=== PATIENT | male | born 1945 | race Caucasian/White ===

== ENCOUNTER 2017-12-28 09:54 | Inpatient (IN) ==
[2017-12-28] MEDS ORDERED: Sod Chloride 0.9% Inj 1,000 ML IV.CONT SCH (10:45)
[2017-12-28 11:01] LABS: Baso % (Auto) 0.2 % (0.0-2.0); Eos % (Auto) 0.1 % (0.0-4.0); Hematocrit 42.8 % (39.0-51.0); Hemoglobin 14.1 gm/dL (13.0-17.0); Lymph # (Auto) 0.4 th/mm3 (1.0-4.8); Mean Corpuscular Hemoglobin 32.5 pg (27.0-34.0); Mean Corpuscular Volume 98.7 fL (80.0-100.0); Mean Platelet Volume 9.4 fL (7.0-11.0); Mono # (Auto) 0.8 th/mm3 (0.0-0.9); Mono % (Auto) 6.4 % (0.0-8.0); Neut # (Auto) 11.8 th/mm3 (1.8-7.7); Neut % (Auto) 90.3 % (16.0-70.0); Platelet Count 165 th/mm3 (150-450); Red Blood Count 4.34 mil/mm3 (4.50-5.90); Red Cell Distribution Width 13.4 % (11.6-17.2)
[2017-12-28 11:14] LABS: Activated Partial Thrombo Time 29.7 sec (24.3-30.1); INR 1.1 Ratio; Prothrombin Time 11.3 sec (9.8-11.6)
--- NOTE | 2017-12-28 11:34 | CT ---
EXAM DATE: 12/28/2017 11:21 AM EDT AGE/SEX: 72 years / Male INDICATIONS: Trauma, fall from bed this morning. Increased right sided weakness and slurred speech. CLINICAL DATA: This is the patient's initial encounter. Patient reports that signs and symptoms have been present for 1 day and indicates a pain score of 4/10. MEDICAL/SURGICAL HISTORY: Hypertension. Seziures. Traumatic brain injury. None. RADIATION DOSE: 55.87 CTDI (mGy) COMPARISON: No prior exams available for comparison. TECHNIQUE: CT of the head without contrast. Using automated exposure control and adjustment of the mA and/or kV according to patient size, radiation dose was kept as low as reasonably achievable to ob tain optimal diagnostic quality images. DICOM format image data is available electronically for revi ew and comparison. FINDINGS: Cerebrum: Evidence for previous surgery left hemisphere with calcification and bone flap. Old infarc t in the left sylvian region. Right hemisphere unremarkable Ventricular 1 second her Posterior Fossa: The cerebellum and brainstem are intact. The 4th ventricle is midline. The cerebe llopontine angle is unremarkable. Extracranial: The visualized portion of the orbits is intact. Skull: The calvaria is intact. No evidence of skull fracture. CONCLUSION: 1. 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 . Electronically signed by: Gianluca Hinton MD 12/28/2017 11:32 AM EDT
[2017-12-28 11:38] LABS: Albumin 2.9 g/dL (3.4-5.0); Anion Gap 10 meq/L (5-15); Aspartate Aminotransferase 54 U/L (15-37); Blood Urea Nitrogen 13 mg/dL (7-18); Calcium 8.7 mg/dL (8.5-10.1); Carbon Dioxide 27.4 meq/L (21.0-32.0); Chloride 100 meq/L (98-107); Glomerular Filtration Rate 66 mL/min (>89); Glucose,Random 122 mg/dL (74-106); Potassium 3.9 meq/L (3.5-5.1); Sodium 137 meq/L (136-145)
[2017-12-28 11:41] LABS: Alanine Aminotransferase 73 U/L (12-78); Alkaline Phosphatase 153 U/L (45-117); Total Protein 7.7 g/dL (6.4-8.2)
--- NOTE | 2017-12-28 11:42 | XR ---
EXAM DATE: 12/28/2017 11:22 AM EDT AGE/SEX: 72 years / Male INDICATIONS: Fall, confusion, dizziness, shortness of breath. CLINICAL DATA: This is the patient's initial encounter. Patient reports that signs and symptoms have been present for 1 day and indicates a pain score of 0/10. MEDICAL/SURGICAL HISTORY: Cardiovascular disease. None. COMPARISON: No prior exams available for comparison. FINDINGS: The cardiac silhouette is enlarged in transverse diameter. There is prominence of the aortic knob is with calcification characteristic of atherosclerotic vascular disease. There is linear atelectasis ve rsus scar on the right. CONCLUSION: Cardiomegaly. Atelectasis versus scar right base Electronically signed by: Flash Munoz MD 12/28/2017 11:41 AM EDT
[2017-12-28 11:43] LABS: Creatine Kinase 71 U/L (39-308)
[2017-12-28] MEDS ORDERED: Aspirin 325 MG Tablet PO ONE (12:13)
--- NOTE | 2017-12-28 12:13 | ED ---
HPI General Chief Complaint: Neuro Symptoms/Deficit Stated Complaint: Fall/Abd Pain Time Seen by Provider: 12/28/17 10:39 Source: patient and family Mode of arrival: ambulatory Limitations: no limitations History of Present Illness HPI Narrative: Patient is a 79-year-old male with history of TBI since he was 19 years old with right-sided deficits, A. fib, seizures, hypothyroidism, hypertension, presents to the emergency room with complaints of generalized weakness. Patient's family reports that patient fell out of bed this morning while trying to use the bathroom, denies any trauma to his head or neck. Patient reports that he has been having problems with his right leg. Patient reports that for the past week, his right leg has been dragging, reports that it feels as if the leg is not talking to his brain. Patient reports that he has been having difficulties with word finding patient does have history of atrial fibrillation, he sees Dr. Carrera in the office for this. He currently is not on any anticoagulation., Report no history of CVA in the past. Patient reports that he does have a mild headache, reports that his abdomen all possible is uncomfortable as he has been on constipated. Patient with no nausea or vomiting, he has been eating but reports overall decreased p.o. intake. Related Data Home Medications Medication Instructions Recorded Confirmed cholecalciferol (vitamin D3) 2,000 unit PO DAILY 12/28/17 12/28/17 [Vitamin D3] levothyroxine 75 mcg PO DAILY 12/28/17 12/28/17 metoprolol tartrate 25 mg PO BID 12/28/17 12/28/17 multivitamin 1 cap PO QAM 12/28/17 12/28/17 primidone 250 mg PO Q12H 12/28/17 12/28/17 vitamins A,C,D-cqmp-icfdzf 2 tab PO BID 12/28/17 12/28/17 [PreserVision AREDS] Allergies Allergy/AdvReac Type Severity Reaction Status Date / Time No Known Allergies Allergy Unverified 12/28/17 10:00 Review of Systems ROS: all other systems reviewed are negative [facility] Medical History Medical History Atrial fibrillation (Acute) Hypertension (Acute) Hypothyroidism (Acute) Seizures (Acute) Traumatic brain injury (Acute) Surgical History Surgical History H/O brain surgery (Acute) History of cataract surgery (Acute) Social History Social History Substance History: No History of Abuse Smoking Status: Former smoker How Often Do You Have a Drink Containing Alcohol: Never Recent Travel in [facility] within the Last 8 Weeks: No Recent Out of Country Travel within the Last 8 Weeks: No Immunization History Tetanus Immunization: >5 Years Exam Narrative Exam Narrative: GENERAL: Mild distress SKIN: Focused skin assessment warm/dry. HEAD: Atraumatic. Normocephalic. EYES: Pupils equal and round. No scleral icterus. No injection or drainage. ENT: No nasal bleeding or discharge. Mucous membranes pink and moist. NECK: Trachea midline. No JVD. CARDIOVASCULAR: Regular rate and rhythm. No murmur appreciated. RESPIRATORY: No accessory muscle use. Clear to auscultation. Breath sounds equal bilaterally. GASTROINTESTINAL: Abdomen soft, non-tender, nondistended. Hepatic and splenic margins not palpable. MUSCULOSKELETAL: No obvious deformities. No clubbing. No cyanosis. No edema. NEUROLOGICAL: Awake and alert. No obvious cranial nerve deficits. Motor grossly within normal limits. Normal speech. PSYCHIATRIC: Appropriate mood and affect; insight and judgment normal. Course Initial Documented Vital Signs Temperature 98.3 F 12/28/17 09:56 Pulse Rate 112 H 12/28/17 09:56 Respiratory Rate 18 12/28/17 09:56 Blood Pressure 143/72 H 12/28/17 09:56 Pulse Oximetry 93 L 12/28/17 09:56 Last Documented Vital Signs Temperature 98.3 F 12/28/17 09:56 Pulse Rate 92 H 12/28/17 10:57 Respiratory Rate 19 12/28/17 10:57 Blood Pressure 149/77 H 12/28/17 10:57 Pulse Oximetry 92 L 12/28/17 11:44 Medical Decision Making MDM Narrative Medical decision making narrative: During the course of the patients emergency department visit, the patients history, examination, and differential diagnosis were reviewed with the patient. The patient was placed on a awake overnight monitor with oximetry and frequent blood pressure monitoring. The patient had an IV access obtained and blood work sent for analysis. Lab work was reviewed, CT the head shows an old infarcts otherwise negative for acute process. Plan to admit him to the hospital as he will need workup for possible CVA. Patient will be given aspirin while in the emergency room. Case reviewed with Dr. Stuart who accepts pt to service Medical Screen Exam Complete: Yes Emergency Medical Condition: Yes Differential Diagnosis Differential Diagnosis: CVA, TIA, intracranial hemorrhage, electrolyte abnormality Medical Records Medical records reviewed: Yes I reviewed the patient's medical records. Lab Data Lab results reviewed: Yes I reviewed the patient's lab results. Result diagrams: 12/28/17 10:45 12/28/17 10:45 Lab Results 12/28/17 12/28/17 12/28/17 Range/Units 10:45 10:45 10:45 WBC 13.0 H (4.0-11.0) th/mm3 RBC 4.34 L (4.50-5.90) mil/mm3 Hgb 14.1 (13.0-17.0) gm/dL Hct 42.8 (39.0-51.0) % MCV 98.7 (80.0-100.0) fL MCH 32.5 (27.0-34.0) pg MCHC 33.0 (32.0-36.0) % RDW 13.4 (11.6-17.2) % Plt Count 165 (150-450) th/mm3 MPV 9.4 (7.0-11.0) fL Neut % (Auto) 90.3 H (16.0-70.0) % Lymph % (Auto) 3.0 L (9.0-44.0) % Baker % (Auto) 6.4 (0.0-8.0) % Eos % (Auto) 0.1 (0.0-4.0) % Baso % (Auto) 0.2 (0.0-2.0) % Neut # (Auto) 11.8 H (1.8-7.7) th/mm3 Lymph # (Auto) 0.4 L (1.0-4.8) th/mm3 Baker # (Auto) 0.8 (0.0-0.9) th/mm3 Eos # (Auto) 0.0 (0.0-0.4) th/mm3 Baso # (Auto) 0.0 (0.0-0.2) th/mm3 WBC Differential . Differential Comment Auto diff final PT 11.3 (9.8-11.6) sec INR 1.1 Ratio APTT 29.7 (24.3-30.1) sec Sodium 137 (136-145) meq/L Potassium 3.9 (3.5-5.1) meq/L Chloride 100 (98-107) meq/L Carbon Dioxide 27.4 (21.0-32.0) meq/L Anion Gap 10 (5-15) meq/L BUN 13 (7-18) mg/dL Creatinine 1.09 (0.60-1.30) mg/dL Estimated GFR 66 L (>89) mL/min POC Glucose (68-110) mg/dl Random Glucose 122 H (74-106) mg/dL Calcium 8.7 (8.5-10.1) mg/dL Magnesium (1.5-2.5) mg/dL Total Bilirubin 1.4 H (0.2-1.0) mg/dL AST 54 H (15-37) U/L ALT 73 (12-78) U/L Alkaline Phosphatase 153 H (45-117) U/L Total Creatine Kinase 71 (39-308) U/L Troponin I Less than 0.02 L (0.02-0.05) ng/mL Total Protein 7.7 (6.4-8.2) g/dL Albumin 2.9 L (3.4-5.0) g/dL 12/28/17 12/28/17 Range/Units 10:45 11:02 WBC (4.0-11.0) th/mm3 RBC (4.50-5.90) mil/mm3 Hgb (13.0-17.0) gm/dL Hct (39.0-51.0) % MCV (80.0-100.0) fL MCH (27.0-34.0) pg MCHC (32.0-36.0) % RDW (11.6-17.2) % Plt Count (150-450) th/mm3 MPV (7.0-11.0) fL Neut % (Auto) (16.0-70.0) % Lymph % (Auto) (9.0-44.0) % Baker % (Auto) (0.0-8.0) % Eos % (Auto) (0.0-4.0) % Baso % (Auto) (0.0-2.0) % Neut # (Auto) (1.8-7.7) th/mm3 Lymph # (Auto) (1.0-4.8) th/mm3 Baker # (Auto) (0.0-0.9) th/mm3 Eos # (Auto) (0.0-0.4) th/mm3 Baso # (Auto) (0.0-0.2) th/mm3 WBC Differential Differential Comment PT (9.8-11.6) sec INR Ratio APTT (24.3-30.1) sec Sodium (136-145) meq/L Potassium (3.5-5.1) meq/L Chloride (98-107) meq/L Carbon Dioxide (21.0-32.0) meq/L Anion Gap (5-15) meq/L BUN (7-18) mg/dL Creatinine (0.60-1.30) mg/dL Estimated GFR (>89) mL/min POC Glucose 122 H (68-110) mg/dl Random Glucose (74-106) mg/dL Calcium (8.5-10.1) mg/dL Magnesium 2.1 (1.5-2.5) mg/dL Total Bilirubin (0.2-1.0) mg/dL AST (15-37) U/L ALT (12-78) U/L Alkaline Phosphatase (45-117) U/L Total Creatine Kinase (39-308) U/L Troponin I (0.02-0.05) ng/mL Total Protein (6.4-8.2) g/dL Albumin (3.4-5.0) g/dL Imaging Data Attestation: I personally reviewed and interpreted this imaging study as follows : Radiologist's impression: Chest X-Ray 12/28/17 10:42 CONCLUSION: Cardiomegaly. Atelectasis versus scar right base Head CT 12/28/17 10:42 CONCLUSION: 1. 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 . ECG Data EKG Prior to Arrival: No Attestation: I personally reviewed and interpreted this ECG as follows: Interpretation: EKG at 1021: A. fib with RVR at 10 8 bpm, QT/QTc 325/388 Discharge Plan Discharge Disposition Patient Disposition: 30 Still Patient Discharge Condition Condition: Stable Discharge Details Diagnosis: CVA (cerebral vascular accident) Physicians Team ED Provider: Julieth Paz Primary Care Provider: UNKNOWN, Rxs /Orders / Referrals /Forms Prescriptions: No Action primidone 250 mg Tablet 250 mg PO Q12H RF: 0 multivitamin Capsule 1 cap PO QAM RF: 0 metoprolol tartrate 25 mg Tablet 25 mg PO BID RF: 0 cholecalciferol (vitamin D3) [Vitamin D3] 2,000 unit Capsule 2,000 unit PO DAILY RF: 0 levothyroxine 75 mcg Capsule 75 mcg PO DAILY RF: 0 vitamins A,C,B-kryr-uslblu [PreserVision AREDS] 7,160-113-100 stlb-xu-epuz Tablet 2 tab PO BID RF: 0 Discharge Interventions Interventions: Vital Signs Last Done: 12/28/17 10:57 Status ED Status: With Doctor
--- NOTE | 2017-12-28 12:34 | CT ---
EXAM DATE: 12/28/2017 11:29 AM EDT AGE/SEX: 72 years / Male INDICATIONS: Constipation since Sunday. CLINICAL DATA: This is the patient's initial encounter. Patient reports that signs and symptoms have been present for 1 day and indicates a pain score of 4/10. MEDICAL/SURGICAL HISTORY: Hypertension. None. RADIATION DOSE: 8.43 CTDI (mGy) COMPARISON: No prior exams available for comparison. TECHNIQUE: Multiple contiguous axial images were obtained through the abdomen. Images were obtained using multiple row detector helical technique. Using automated exposure control and adjustment of the mA and/or kV according to patient size, radiation dose was kept as low as reasonably achievable to o btain optimal diagnostic quality images. DICOM format image data is available electronically for rev iew and comparison. FINDINGS: Moderate bibasilar changes worse on the right than the left with trace pleural effusion. Compensated cardiomegaly with extensive coronary calcifications in the LAD. The liver is free of focal defects The gallbladder is abnormal with gallbladder wall thickening and fluid suggesting chronic and possibl y acute cholecystitis Pancreas and spleen are unremarkable The adrenal glands appear normal Right and left kidneys unremarkable There is no ascites or adenopathy Extensive vascular calcifications Cecum, ascending, transverse and descending colon appear normal Diverticuli in the sigmoid colon without diverticulitis Bladder prostate and seminal vesicles unremarkable There is no ascites or adenopathy Review of bone windows reveals degenerative changes in the lower lumbar spine. CONCLUSION 1. Abnormal gallbladder, chronic versus acute cholecystitis 2. Nonspecific bowel gas pattern without obstruction 3. Moderate vascular calcifications 4. Degenerative changes lower lumbar spine 5. Electronically signed by: Gianluca Hinton MD 12/28/2017 12:33 PM EDT
[2017-12-28] MEDS ORDERED: Dextrose 50% in Water 50 ML Vial IV.PUSH PRN (12:50)
--- NOTE | 2017-12-28 13:40 | P.HPIM ---
History of Present Illness Primary Care Physician: UNKNOWN Chief Complaint: Right lower extremity with History of Present Illness: This is a 72-year-old male with significant past medical history for traumatic brain injury or prophylactic antiseizure medications who has been seizure-free for more than 2 years to presents emergency department with a right lower extremity weakness. Apparently he was in usual state of health up until 5 days ago when he noticed right lower extremity weakness difficulty ambulating. Apparently he is not to have atrial fibrillation as well and was taken off anticoagulation couple years ago by his day treatment clinician/art therapist. He was recently taken off by his aspirin by his primary care physician as well. On admission it appears that he was in atrial fibrillation as per what the daughter describes since she is a nurse. A CT of the head was obtained and failed to reveal an acute intracranial process. On interview he expressed some slurred speech. Denies any fever chills or rigors no night sweats weight loss or diaphoresis. Continues to have a right lower extremity weakness. He also admits to have some abdominal distention Review of Systems 14 point review of systems otherwise negative [facility] - History History Provided By: Patient, Family Member - Medical History Medical History: Medical History (Last Reviewed 12/28/17 @ 12:11 by Julieth Paz) Atrial fibrillation Hypertension Hypothyroidism Seizures Traumatic brain injury - Surgical History Surgical History: Surgical History (Last Reviewed 12/28/17 @ 12:11 by Julieth Paz) H/O brain surgery History of cataract surgery - Family History Family History: Family History (Last Updated 12/28/17 @ 13:32 by Aguilar Stuart MD) Other Family history of hypertension - Social History I have reviewed the patient's Social History: Yes - Tobacco History Second Hand Smoke Exposure: No Tobacco Use In Past 30 Days: No Smoking Status: Former smoker - Alcohol History How Often Do You Have a Drink Containing Alcohol: Never - Substance Use History Substance History: No History of Abuse - Travel History Recent Travel in the [place] Within the Last 8 Weeks: No Recent Travel Out of the Country Within the Last 8 Weeks: No - Immunization History Tetanus Immunization: >5 Years Medications and Allergies Active Medications: Active Medications Aspirin (Aspirin Chew) 81 mg PO DAILY [facility] Dextrose (D50w Vial) 50 ml IV.PUSH UNSCH PRN PRN Reason: PER HYPOGLYCEMIA PROTOCOL Enoxaparin Sodium (Lovenox Inj) 30 mg SQ Q24H [facility] Glucagon (Glucagon Inj) 1 mg OTHER UNSCH PRN PRN Reason: for Hypoglycemia Protocol Sodium Chloride (Ns Inj) 1,000 mls @ 70 mls/hr IV.CONT .[id number] [facility] Stop: 12/29/17 01:02 Last Admin: 12/28/17 11:54 Dose: 70 mls/hr Insulin Aspart (Novolog Insulin Correctional Sugar Inj) 0 unit SQ ACHS [facility]; Protocol Metoprolol Tartrate (Lopressor) 25 mg PO BID [facility] Non-Formulary Medication (Cholecalciferol (Vitamin D3) [Vitamin D3]) 2,000 unit PO DAILY [facility] Non-Formulary Medication (Levothyroxine [Levothyroxine]) 75 mcg PO DAILY [facility] Non-Formulary Medication (Multivitamin [Multivitamin]) 1 cap PO QAM [facility] Non-Formulary Medication (Vitamins A,C,Q-Mlpq-Fvwtrt [Preservision Areds]) 2 tab PO BID [facility] Pravastatin Sodium (Pravachol) 40 mg PO HS [facility] Primidone (Mysoline) 125 mg PO QNOON [facility] Primidone (Mysoline) 250 mg PO Q12H [facility] Sodium Chloride (Ns Flush) 2 ml IV.FLUSH PRN PRN PRN Reason: FLUSH AFTER USING IV ACCESS Sodium Chloride (Ns Flush) 2 ml IV.FLUSH BID [facility] Sodium Chloride (Ns Flush) 2 ml IV.FLUSH PRN PRN PRN Reason: FLUSH AFTER USING IV ACCESS Allergies Allergy/AdvReac Type Severity Reaction Status Date / Time No Known Allergies Allergy Unverified 12/28/17 10:00 Home Medications Medication Instructions Recorded Confirmed Type cholecalciferol (vitamin D3) 2,000 unit PO DAILY 12/28/17 12/28/17 History [Vitamin D3] levothyroxine 75 mcg PO DAILY 12/28/17 12/28/17 History metoprolol tartrate 25 mg PO BID 12/28/17 12/28/17 History multivitamin 1 cap PO QAM 12/28/17 12/28/17 History primidone 125 mg PO QNOON 12/28/17 12/28/17 History primidone 250 mg PO Q12H 12/28/17 12/28/17 History vitamins A,C,X-mcbx-jjaedf 2 tab PO BID 12/28/17 12/28/17 History [PreserVision AREDS] Exam Vital signs: Vital Signs 12/28/17 09:56 12/28/17 10:57 12/28/17 11:44 Temperature 98.3 F Pulse Rate 112 H 92 H Respiratory Rate 18 19 Blood Pressure 143/72 H 149/77 H Pulse Oximetry 93 L 93 L 92 L 12/28/17 13:00 Temperature Pulse Rate 97 H Respiratory Rate 19 Blood Pressure 135/81 Pulse Oximetry 96 Intake & Output 12/27/17 12/28/17 12/28/17 18:59 06:59 18:59 Weight 79.379 kg Narrative: GENERAL: Nontoxic nonencephalopathic. Slightly dysarthric SKIN: Warm and dry. HEAD: Atraumatic. Normocephalic. EYES: Pupils equal and round. No scleral icterus. No injection or drainage. ENT: No nasal bleeding or discharge. Mucous membranes pink and moist. NECK: Trachea midline. No JVD. CARDIOVASCULAR: Regular rate and rhythm. Capillary refill greater than 2 seconds. Skin is warm. Well-perfused RESPIRATORY: No accessory muscle use. Clear to auscultation. Breath sounds equal bilaterally. GASTROINTESTINAL: Abdomen soft, non-tender, raised mildly distended bowel sounds are present tympanic. Hepatic and splenic margins not palpable. MUSCULOSKELETAL: Extremities without clubbing, cyanosis, or edema. No obvious deformities. NEUROLOGICAL: Awake and alert. No obvious cranial nerve deficits. Motor grossly within normal limits. Five out of 5 muscle strength in the arms and legs. Normal speech. Right lower extremity with some decrease strength PSYCHIATRIC: Appropriate mood and affect; insight and judgment normal. Results - Labs CBC & Chem 7: 12/28/17 10:45 12/28/17 10:45 Labs: Short CBC 12/28/17 Range/Units 10:45 WBC 13.0 H (4.0-11.0) th/mm3 Hgb 14.1 (13.0-17.0) gm/dL Hct 42.8 (39.0-51.0) % Plt Count 165 (150-450) th/mm3 BMP 12/28/17 10:45 Sodium 137 Potassium 3.9 Chloride 100 Carbon Dioxide 27.4 BUN 13 Creatinine 1.09 Calcium 8.7 Cardiac Enzymes 12/28/17 Range/Units 10:45 Total Creatine Kinase 71 (39-308) U/L Troponin I Less than 0.02 L (0.02-0.05) ng/mL Liver Function 12/28/17 Range/Units 10:45 Total Bilirubin 1.4 H (0.2-1.0) mg/dL AST 54 H (15-37) U/L ALT 73 (12-78) U/L Alkaline Phosphatase 153 H (45-117) U/L Albumin 2.9 L (3.4-5.0) g/dL - Imaging Impressions Chest X-Ray 12/28/17 10:42 CONCLUSION: Cardiomegaly. Atelectasis versus scar right base Head CT 12/28/17 10:42 CONCLUSION: 1. 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 . Caprini VTE Risk Assessment Caprini VTE Risk Assessment: Moderate/High Risk (score >= 2) (TIA) Caprini Risk Assessment Model: Point Value = 1 Point Value = 2 Point Value = 3 Point Value = 5 Age 41-60 Minor surgery BMI > 25 kg/m2 Swollen legs Varicose veins or History of unexplained or recurrent spontaneous Oral contraceptives or hormone replacement Sepsis (< 1 month) Serious lung disease, including pneumonia (< 1 month) Abnormal pulmonary function Acute myocardial infarction Congestive heart failure (< 1 month) History of inflammatory bowel disease Medical patient at bed rest Age 61-74 Arthroscopic surgery Major open surgery (> 45 min) Laparoscopic surgery (> 45 min) Malignancy Confined to bed (> 72 hours) Immobilizing plaster cast Central venous access Age >= 75 History of VTE Family history of VTE Factor V Leiden Prothrombin [id number] Lupus anticoagulant Anticardiolipin antibodies Elevated serum homocysteine Heparin-induced thrombocytopenia Other congenital or acquired thrombophilia Stroke (< 1 month) Elective arthroplasty Hip, pelvis, or leg fracture Acute spinal cord injury (< 1 month) Prophylaxis Regimen: Total Risk Factor Score Risk Level Prophylaxis Regimen 0-1 Low Early ambulation 2 Moderate Order ONE of the following: *Sequential Compression Device (SCD) *Heparin 5000 units SQ BID 3-4 Higher Order ONE of the following medications: *Heparin 5000 units SQ TID *Enoxaparin/Lovenox 40 mg SQ daily (WT < 150 kg, CrCl > 30 mL/min) *Enoxaparin/Lovenox 30 mg SQ daily (WT < 150 kg, CrCl > 10-29 mL/min) *Enoxaparin/Lovenox 30 mg SQ BID (WT < 150 kg, CrCl > 30 mL/min) AND/OR *Sequential Compression Device (SCD) 5 or more Highest Order ONE of the following medications: *Heparin 5000 units SQ TID (Preferred with Epidurals) *Enoxaparin/Lovenox 40 mg SQ daily (WT < 150 kg, CrCl > 30 mL/min) *Enoxaparin/Lovenox 30 mg SQ daily (WT < 150 kg, CrCl > 10-29 mL/min) *Enoxaparin/Lovenox 30 mg SQ BID (WT < 150 kg, CrCl > 30 mL/min) AND *Sequential Compression Device (SCD) Assessment and Plan - Plan #TIA manifested with right lower extremity weakness #atrial fibrillation on admission currently rate control/normal sinus #constipation with some mild distention. Will start him on a bowel regimen and obtain a KUB #right lower extremity weakness multifactorial most likely secondary to acute CVA no evidence of any tenosynovitis or trauma #history of hypertension appropriately #history of traumatic brain injury #history of seizures secondary to traumatic brain injury and seizure free in 2 years Plan Telemetry/neuro checks every 6 hours/swallow evaluation/PT/OT evaluation/fall precautions/Lovenox for DVT prophylaxis/aspirin 81 p.o. daily/statin 40 minutes p.o. daily/update A1c/lipid profile/due to the echo /Fall precautions/obtain neurology input/case management for discharge planning/KUB/aggressive bowel regimen. Obtain brain MRI to/carotid ultrasound Patient increased risk for disability due to stroke. Anticipated length of stay 1 night. Disposition home with home health care Discussed Condition With: We discussed in the case with his community PCP
[2017-12-28] MEDS ORDERED: Bisacodyl 10 MG Supp RECTAL PRN (13:47)
[2017-12-28 14:13] LABS: Bilirubin,Urine Negative (Negative); Clarity,Urine Cloudy (Clear); Color,Urine Amber (Yellw/Straw); Glucose,Urine (UA) Negative (Negative); Leukocyte Esterase,Urine Negative (Negative); Nitrite,Urine Negative (Negative)
[2017-12-28] MEDS: Enoxaparin Inj 30 MG/0.3 ML Syringe SQ SCH (14:47)
[2017-12-28] MEDS: Primidone 250 MG Tablet PO SCH ×2 (14:47→22:08)
--- NOTE | 2017-12-28 15:24 | US ---
EXAM DATE: 12/28/2017 3:11 PM EDT AGE/SEX: 72 years / Male INDICATIONS: Right lower extremity weakness. Slurred speech. CLINICAL DATA: This is the patient's initial encounter. Patient reports that signs and symptoms have been present for 1 day and indicates a pain score of 0/10. MEDICAL/SURGICAL HISTORY: Hypertension. Hypothyroidism. Afib. Traumatic brain injury. Seizures . . Cataract extraction. Brain surgery. COMPARISON: No prior exams available for comparison. VELOCITY PARAMETERS: ICA/CCA Ratio: Right 1.3 , Left 1.6 ICA: Right 79 cm/sec, Left 103 cm/sec CCA: Right 59 cm/sec, Left 65 cm/sec ECA: Right 111 cm/sec, Left 98 cm/sec Vertebral: Right 40 cm/sec antegrade, Left 38 cm/sec antegrade FINDINGS: Right Carotid: Moderate arteriosclerotic plaque is visualized.The waveforms are within normal limits . Left Carotid: Moderate arteriosclerotic plaque is visualized. The waveforms are within normal limits . Other: None. CONCLUSION: Right Internal Carotid Artery: No evidence of hemodynamically significant lesion with less than 50% s tenosis. Left Internal Carotid Artery: No evidence of hemodynamically significant lesion with less than 50% st enosis. Electronically signed by: Flash Munoz MD 12/28/2017 3:22 PM EDT
--- NOTE | 2017-12-28 17:02 | US ---
EXAM DATE: 12/28/2017 4:57 PM EDT AGE/SEX: 72 years / Male INDICATIONS: Abdominal pain. CLINICAL DATA: This is the patient's initial encounter. Patient reports that signs and symptoms have been present for 1 day and indicates a pain score of 0/10. MEDICAL/SURGICAL HISTORY: Hypertension. Hypothyroidism. Afib. Traumatic brain injury. Seizures . . Cataract extraction. Brain surgery. COMPARISON: No prior exams available for comparison. MEASUREMENTS: Liver:__ 18.3 cm. Common Bile Duct:__ 4mm. Right Kidney:__ 11.2 x 5.5 x 4.2 cm. FINDINGS: Small right-sided pleural effusion. Liver: Normal echotexture without focal lesion or ductal dilatation. Portal Vein: Hepatopedal flow seen in portal vein. Common Duct: No intraluminal mass or stone visualized. Gallbladder: The gallbladder demonstrates layering sludge and small stones. There is thickening of t he gallbladder wall measuring 6 mm with a trace amount of pericholecystic fluid. The patient states n o pain while imaging over this area. Pancreas: The visualized portions are within normal limits Right Kidney: Normal echotexture and cortical thickness. No mass or hydronephrosis. There is a small amount of free fluid seen adjacent to the right kidney. Other: The spleen appears normal in size. No abnormality noted. CONCLUSION: 1. Abnormal appearance of the gallbladder with wall thickening, sludge and stones. The patient denie s pain while imaging over this area, however, findings remain concerning for acute cholecystitis. 2. Trace pleural effusion. Small amount of free fluid identified adjacent to the right kidney. Electronically signed by: Ana Cristina Montanez MD 12/28/2017 5:01 PM EDT
--- NOTE | 2017-12-28 17:08 | ECHRPT ---
Indication: CVA/TIA CONCLUSIONS Normal left ventricular size. Wall thickness is normal. The left ventricular systolic function is normal with an estimated ejection fraction in the range of 60-65%. The left atrial size is mildly dilated The right atrial size is moderately dilated [id number] srinivas ral valve regurgitation. Aortic valve sclerosis is present. There is mild tricuspid valve regurgitation. BP: / HR: Rhythm: MEASUREMENTS (Male / Female) Normal Values Technical Quality: 2D ECHO LV Diastolic Diameter PLAX 4.4 cm 4.2 - 5.9 / 3.9 - 5.3 cm LV Systolic Diameter PLAX 3.1 cm IVS Diastolic Thickness 1.0 cm 0.6 - 1.0 / 0.6 - 0.9 cm LVPW Diastolic Thickness 1.0 cm 0.6 - 1.0 / 0.6 - 0.9 cm LV Relative Wall Thickness 0.5 RV Internal Dim ED PLAX 2.0 cm LVOT Diameter 1.7 cm LA Systolic Diameter LX 3.5 cm 3.0 - 4.0 / 2.7 - 3.8 cm LV Ejection Fraction MOD 4C 62.3 % LV Ejection Fraction 4C AL 66.4 % M-MODE Aortic Root Diameter MM 3.5 cm LA Systolic Diameter MM 4.0 cm LA Ao Ratio MM 1.1 AV Cusp Separation MM 1.8 cm DOPPLER AV Peak Velocity 132.0 cm/s AV Peak Gradient 7.0 mmHg LVOT Peak Velocity 92.3 cm/s LVOT Peak Gradient 3.4 mmHg AV Area Cont Eq pk 1.6 cm Mitral E Point Velocity 122.0 cm/s Mitral A Point Velocity 42.0 cm/s Mitral E to A Ratio 2.9 TR Peak Velocity 254.5 cm/s TR Peak Gradient 25.9 mmHg Right Atrial Pressure 10.0 mmHg Pulmonary Artery Systolic Pressu 35.9 mmHg Right Ventricular Systolic Press 35.9 mmHg PV Peak Velocity 98.2 cm/s PV Peak Gradient 3.9 mmHg FINDINGS LEFT VENTRICLE Normal left ventricular size. Wall thickness is normal. The left ventricular systolic function is normal with an estimated ejection fraction in the range of 60-65%. RIGHT VENTRICLE Normal right ventricular size and systolic function. LEFT ATRIUM The left atrial size is mildly dilated RIGHT ATRIUM The right atrial size is moderately dilated ATRIAL SEPTUM Normal atrial septal thickness without atrial level shunting by limited color doppler interrogation. AORTA The aortic root and proximal ascending aorta are normal in size on limited imaging. MITRAL VALVE Ncbwy-uj-tahl mitral valve regurgitation. AORTIC VALVE Aortic valve sclerosis is present. TRICUSPID VALVE There is mild tricuspid valve regurgitation. PULMONARY VALVE No pulmonary valve regurgitation or stenosis. VESSELS The inferior vena cava is normal in size. PERICARDIUM No pericardial effusion. Ruiz Chiu MD, FACC (Electronically Signed) Final Date:28 December 2017 17:07
--- NOTE | 2017-12-28 17:23 | MR ---
EXAM DATE: 12/28/2017 4:05 PM EDT AGE/SEX: 72 years / Male INDICATIONS: CVA. Right sided weakness. CLINICAL DATA: This is the patient's initial encounter. Patient reports that signs and symptoms have been present for 1 day and indicates a pain score of 4/10. MEDICAL/SURGICAL HISTORY: . Afib. . Plate on right side of face. COMPARISON: No prior exams available for comparison. TECHNIQUE: Multiplanar, multisequence examination of the brain was performed without contrast. FINDINGS: Cerebrum: There is a large area of encephalomalacia involving the left frontal and parietal lobe wit h gliosis of the adjacent residual white matter. There is dilation of the left lateral ventricle seco ndary to the large area of parenchymal loss. No evidence of midline shift. The remainder of the cereb rum demonstrates normal morphology and signal. White Matter: Large area of gliosis adjacent to the area of encephalomalacia within the left frontal lobe and left parietal lobe. No concerning white matter lesions. Posterior Fossa: The cerebellum and brainstem are intact. The 4th ventricle is midline. The cerebel lopontine angle is unremarkable. The cerebellar tonsils are normal in position. Diffusion Imaging: No focal areas of restricted diffusion are seen. No evidence of acute infarction . Extracranial: The visualized portions of the orbits and paranasal sinuses are unremarkable. CONCLUSION: 1. 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 No evidence o f acute abnormality. Electronically signed by: Ana Cristina Montanez MD 12/28/2017 5:22 PM EDT
[2017-12-28] MEDS: Insulin NovoLOG Aspart Correctional Sugar Inj SQ SCH ×2 (17:44→22:24)
[2017-12-28] MEDS: Metoprolol Tartrate 25 MG Tablet PO SCH (22:06)
[2017-12-28] MEDS: Vitamins A,C,E/Lutein/Minerals Tablet PO SCH (22:09)
[2017-12-28] MEDS: Senna/Docusate Sodium 8.6/50 MG Tablet PO SCH (22:11)
[2017-12-29] MEDS: Levothyroxine 75 MCG Tablet PO SCH (06:02)
[2017-12-29 09:13] LABS: Chol/HDL Ratio 5.16 Ratio
[2017-12-29] MEDS: Metoprolol Tartrate 25 MG Tablet PO SCH ×2 (09:20→21:00)
[2017-12-29] MEDS: Vitamins A,C,E/Lutein/Minerals Tablet PO SCH ×2 (09:20→21:00)
[2017-12-29] MEDS: Senna/Docusate Sodium 8.6/50 MG Tablet PO SCH ×2 (09:21→21:02)
[2017-12-29] MEDS: Insulin NovoLOG Aspart Correctional Sugar Inj SQ SCH ×4 (09:21→21:00)
[2017-12-29] MEDS: Primidone 250 MG Tablet PO SCH ×3 (09:26→21:01)
--- NOTE | 2017-12-29 12:03 | MB ---
cc: Marcela Alejandro MD DATE: 12/29/2017 REASON FOR CONSULTATION: Possible stroke. HISTORY OF PRESENT ILLNESS: Mr. Duenas is a 72-year-old man with a notable history of traumatic brain injury from a hockey injury when he was in his teens, on primidone, seizure free for a number of years, comes in because he had a fall and he had right lower extremity weakness, more so than normal, was unable to extend his right leg. He is back to baseline now, was having some questionable chills the night before and some constipation issues. These seemed to have resolved. He is afebrile. There is some question of history of number of years ago of atrial fibrillation. He was on warfarin. Had seen Dr. Carrera and apparently is no longer on it. Was taken off of it and no longer an aspirin. The patient offers no new complaints. Denies any headache, chest pain, shortness of breath, any new weakness. He has old residual weakness on the right side and trouble with speech at times, more expressive aphasia. PAST MEDICAL HISTORY: Questionable atrial fibrillation, hypertension, hypothyroidism, seizures in the past, and traumatic brain injury. PAST SURGICAL HISTORY: Brain surgery, cataracts. FAMILY HISTORY: Hypertension. SOCIAL HISTORY: He is , does not smoke any longer. Does not drink. HOME MEDICATIONS: Primidone 125 mg at noon, 250 mg twice a day. PHYSICAL EXAMINATION: VITAL SIGNS: His temperature is 99. The highest it has been is 99.4, but currently 99. Pulse 88, respiratory rate 20, blood pressure 136/84, saturating 94% on room air. NECK: Supple. No appreciable bruits. HEART: Regular. I do not hear any atrial fibrillation. NEUROLOGIC: He is awake and alert. His speech is mildly aphasic. His pupils are reactive. His face looks symmetrical. Motor vicente, he does not have any significant weakness in the right side. Tone is normal, but he does have decreased coordination in the right hand. Keeps his hand somewhat flexed. Tone is intact in the leg. DTRs are a little bit brisker on the right than on the left. Sensory is normal. Toes withdraws. Cerebellar normal on the left. His gait is withheld until PT can assess him. LABORATORY STUDIES: His white count yesterday morning was 13. Neutrophil 90.3%. Coag panel unremarkable. Chemistries: Normal sodium. GFR 66, glucose is 111. Hemoglobin A1c is pending. AST 54, ALT 73, alkaline phosphatase 153. Troponin less than 0.02. Albumin 2.9. His triglycerides are 90, cholesterol 93, LDL 53, HDL 18. His urine was cloudy, 100 protein, 23 RBCs, 1 white cell. No culture indicated. His reports, as far as echocardiogram, trying to obtain through the computer system, show an EF of 60% to 65%, left atrial size mildly dilated, right atrial size is moderately dilated, [id number] mitral valve regurgitation, aortic valve sclerosis present, mild tricuspid valve regurgitation. His liver ultrasound shows abnormal appearance of the gallbladder with wall thickening, sludge, and stones, trace pleural effusion. Small amount of free fluid in the right kidney. Abdomen and pelvis CT: Moderate vascular calcification, degenerative changes of lumbar spine, nonspecific bowel gas pattern without obstruction, abnormal gallbladder, chronic versus acute. Chest x-ray: Atelectasis versus scar right base. MRI of the brain shows old prior infarct, left frontal, left parietal but nothing acute. IMPRESSION: Questionable transient ischemic attack, questionable seizure in a patient with a history of traumatic brain injury. Recommend getting an EEG. He seems to be back to baseline. We will get a primidone level. I will put him on a baby aspirin. There is no contraindication. He would probably benefit from an outpatient Holter to see if there are any new findings for atrial fibrillation recurrence, etc. Also, keep him on telemetry, PT and OT evaluation. Maintain the baby aspirin, Lovenox for DVT prevention. Out of bed to chair. Watch for any fever, if he develops any abdominal pain, questionable cholecystitis per report. Has not complained of anything to me when I saw him. He did state he was constipated and had 3 bowel movements and feeling better from that perspective. We will get the EEG, get a primidone level. If he is stable from a neurologic perspective, he certainly can be discharged home and have him follow up with me as an outpatient. Continue baby aspirin. MD JAN Ascencio/missael , 09:39 AM , 09:50 AM
--- NOTE | 2017-12-29 13:27 | P.PNIM ---
Subjective Interval history: Patient does not have any current complaints. Physical Exam Vital signs: Vital Signs 12/28/17 15:00 12/28/17 17:30 12/28/17 19:18 Temperature Pulse Rate 88 96 H 92 H Respiratory Rate 20 20 18 Blood Pressure 127/81 160/84 H 167/91 H Pulse Oximetry 96 96 94 L 12/28/17 20:00 12/28/17 21:30 12/28/17 23:54 Temperature 98.5 F 99.4 F Pulse Rate 102 H 90 98 H Respiratory Rate 18 18 Blood Pressure 185/104 H 168/93 H Pulse Oximetry 93 L 93 L 12/29/17 00:00 12/29/17 00:29 12/29/17 04:00 Temperature 98.3 F Pulse Rate 85 77 Respiratory Rate 20 Blood Pressure 119/71 Pulse Oximetry 93 L 95 12/29/17 08:00 12/29/17 09:33 Temperature 99.0 F Pulse Rate 88 81 Respiratory Rate 20 Blood Pressure 136/84 Pulse Oximetry 94 L Intake & Output 12/28/17 12/29/17 12/29/17 18:59 06:59 18:59 Intake Total 1000 / 1000 Balance 1000 / 1000 Weight 79.379 kg 79.34 kg Intake: IV 1000 / 1000 NS Inj 1,000 ML @ 70 mls/hr IV. 1000 / 1000 CONT .[id number] [facility] Rx#:[id number] Other: Date of Last Bowel Movement 12/28/17 12/28/17 Weight On Admission 79.379 kg Narrative: General patient in no acute distress HEENT extraocular movements are intact, clear oropharyngeal mucosa, no JVD Cardiovascular S1-S2 audible, patient in A. fib Respiratory clear to auscultation bilaterally Abdomen soft, nontender, nondistended, normal bowel sounds Extremities no edema 2+ distal pulses in bilateral upper and lower extremities Neuro patient can move all 4 extremities sensation is intact bilaterally right lower extremity 4 out of 5 strength left lower extremity 5 out of 5 strength. Strength in bilateral upper extremities 5 out of 5. Expressive aphasia is noted. No other significant neurological deficits. Results - Labs CBC & Chem 7: 12/28/17 10:45 12/28/17 10:45 Laboratory Results - last 24 hr 12/28/17 12/28/17 12/29/17 13:15 22:25 07:36 POC Glucose 98 111 H Triglycerides Cholesterol LDL Cholesterol, Calc HDL Cholesterol Cholesterol/HDL Ratio Urine Color Krys Urine Clarity Cloudy H Urine pH 8.0 Ur Specific [place] 1.020 Urine Protein 100 H Urine Glucose (UA) Negative Urine Ketones Negative Urine Occult Blood Negative Urine Nitrate Negative Urine Bilirubin Negative Urine Urobilinogen 2.0 H Ur Leukocyte Esterase Negative Urine RBC 23 H Urine WBC 1 Micro UA Comment Culture not ind Ur Microscopic Review Not Reportable Urine Culture Comments Culture not ind 12/29/17 12/29/17 08:30 11:31 POC Glucose 112 H Triglycerides 90 Cholesterol 93 L LDL Cholesterol, Calc 57 HDL Cholesterol 18.0 L Cholesterol/HDL Ratio 5.16 Urine Color Urine Clarity Urine pH Ur Specific [place] Urine Protein Urine Glucose (UA) Urine Ketones Urine Occult Blood Urine Nitrate Urine Bilirubin Urine Urobilinogen Ur Leukocyte Esterase Urine RBC Urine WBC Micro UA Comment Ur Microscopic Review Urine Culture Comments - Imaging Impressions Carotid Doppler Study 12/28/17 00:00 CONCLUSION: Right Internal Carotid Artery: No evidence of hemodynamically significant lesion with less than 50% stenosis. Left Internal Carotid Artery: No evidence of hemodynamically significant lesion with less than 50% stenosis. Head MRI 12/28/17 00:00 CONCLUSION: 1. 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 No evidence of acute abnormality. Liver Ultrasound 12/28/17 00:00 CONCLUSION: 1. Abnormal appearance of the gallbladder with wall thickening, sludge and stones. The patient denies pain while imaging over this area, however, findings remain concerning for acute cholecystitis. 2. Trace pleural effusion. Small amount of free fluid identified adjacent to the right kidney. Assessment and Plan - Plan This patient is a 72-year-old male with a history of atrial fibrillation and history of traumatic brain injury when he was 19. He underwent surgical intervention after the traumatic brain injury. He has been kept on anti-seizure medication after the traumatic brain injury and has been seizure-free for many years. At baseline the patient does have some residual right-sided weakness. The patient was brought into emergency department after suffering a ground-level fall at home and complained of right lower extremity weakness. There was a concern for a possible stroke and he was brought into our emergency department for evaluation. 1. Right lower extremity weakness possibly secondary to a TIA or seizure. 2. Atrial fibrillation The patient's right lower extremity weakness has resolved. CT scan of the head and MRI of the brain show old findings from the traumatic brain injury however no acute findings of stroke are identified. Neurology was consulted to evaluate the patient. Recommendations from neurology for the patient undergo an EEG as a seizure cannot be ruled out at this point. He does have a diagnosis of atrial fibrillation and was on anticoagulation in the past. As per the patient and the patient's family his banana expert Dr. Reynaga stopped his aspirin and Coumadin a couple of months ago. It is unclear why the patient' s anticoagulation was stopped. Cardiology will be consulted to evaluate the patient for paroxysmal atrial fibrillation and the need for anticoagulation given the patient's elevated chads score and history. The patient is currently unsure if he wants to start anticoagulation. A 2D echocardiogram was done which showed ejection fraction of 60% no other significant findings were found some of bilateral carotids showed mild atherosclerosis with less than 50% stenosis bilaterally. He is tolerating a regular diet well he was evaluated by speech therapy. PT is evaluating the patient.
[2017-12-29 13:48] LABS: Hemoglobin A1c 5.1 % (4.3-6.0)
[2017-12-29] MEDS: Enoxaparin Inj 30 MG/0.3 ML Syringe SQ SCH (13:51)
--- NOTE | 2017-12-29 21:20 | MG ---
cc: Marcela Alejandro MD AGE: [id number] years old EEG NUMBER: [id number] INDICATIONS: In room 1527, awake, drowsy with photic done. Alert. MRI large old infarct over the left hemisphere, traumatic brain injury. A 72-year-old man with right-sided weakness, history of seizures in the past. MEDICATIONS: 1. Primidone. 2. Aspirin and others. DESCRIPTION OF RECORD: The patient has normal background rhythm of 8 Hz, 20-40 microvolts. There are some sharps and phase reversal seen predominantly over the left hemisphere. No epileptic activity otherwise except for the sharps that are seen throughout the left hemisphere with phase reversal. IMPRESSION: Abnormal EEG due to abnormalities over the left hemisphere as described. Likely this is a focus for epileptogenicity in the patient. No active seizures, however. Clinical correlation. Marcela Alejandro MD DF/issac , 07:20 PM , 07:25 PM
[2017-12-30] MEDS: Levothyroxine 75 MCG Tablet PO SCH (06:12)
--- NOTE | 2017-12-30 06:18 | P.CONCA ---
History of Present Illness Primary Care Provider: UNKNOWN Chief Complaint: Right lower extremity with History of Present Illness: Mr. Duenas is a very pleasant 72 year old gentleman with a long standing history of atrial fibrillation who is followed by Dr. Carrera as an outpatient. He was previously on Coumadin for many years, but currently is on ASA only. He also has a history of TBI at a young age and is on antiepileptics for seizures. The patient has a ground level fall. He was found to be in atrial fibrillation with RVR. Cardiology consulted to weigh in on anticoagulation. It appears from review of clinic notes that the patient has been refusing ablation or oral anticoagulation. There is a thought that this episode which include right lower extremity weakness may have been a TIA versus a Seizure. Neuro evaluation pending. The patient ambulates with a walker. No CP/SOB/PND/orthopnea /LE. The right lower extremity weakness has resolved. Review of Systems All other systems reviewed negative except as stated in HPI [facility] - History History Provided By: Patient, Family Member, Medical Record - Medical History Medical History: Medical History (Last Reviewed 12/29/17 @ 07:40 by Graciela Salinas) Atrial fibrillation Hypertension Hypothyroidism Seizures Traumatic brain injury - Surgical History Surgical History: Surgical History (Last Reviewed 12/29/17 @ 07:40 by Graciela Salinas) H/O brain surgery History of cataract surgery - Family History Family History: Family History (Last Updated 12/28/17 @ 13:32 by Aguilar Stuart MD) Other Family history of hypertension - Tobacco History Second Hand Smoke Exposure: No Tobacco Use In Past 30 Days: No Smoking Status: Former smoker - Alcohol History How Often Do You Have a Drink Containing Alcohol: Never - Substance Use History Substance History: No History of Abuse - Travel History Recent Travel in the [place] Within the Last 8 Weeks: No Recent Travel Out of the Country Within the Last 8 Weeks: No - Immunization History Tetanus Immunization: >5 Years Medications and Allergies Active Medications: Active Medications Al Hydroxide/Mg Hydroxide (Milk Of Magnvenancio Liq) 30 ml PO Q12H PRN PRN Reason: Mild Constipation Aspirin (Aspirin Chew) 81 mg PO DAILY [facility] Last Admin: 12/29/17 09:20 Dose: 81 mg Bisacodyl (Dulcolax Supp) 10 mg RECTAL DAILY PRN PRN Reason: SEVERE CONSITIPATION Dextrose (D50w Vial) 50 ml IV.PUSH UNSCH PRN PRN Reason: PER HYPOGLYCEMIA PROTOCOL Enoxaparin Sodium (Lovenox Inj) 30 mg SQ Q24H [facility] Last Admin: 12/29/17 13:51 Dose: 30 mg Glucagon (Glucagon Inj) 1 mg OTHER UNSCH PRN PRN Reason: for Hypoglycemia Protocol Insulin Aspart (Novolog Insulin Correctional Sugar Inj) 0 unit SQ [facility]; Protocol Last Admin: 12/29/17 21:00 Dose: Not Given Lactulose (Lactulose Liq) 30 ml PO DAILY PRN PRN Reason: SEVERE CONSITIPATION Levothyroxine Sodium (Synthroid) 75 mcg PO DAILY@0600 [facility] Last Admin: 12/29/17 06:02 Dose: 75 mcg Metoprolol Tartrate (Lopressor) 25 mg PO BID [facility] Last Admin: 12/29/17 21:00 Dose: 25 mg Miscellaneous (Pill Splitter) 1 each OTHER UNSCH PRN PRN Reason: SEE LABEL COMMENTS Multivitamins (Theragran) 1 tab PO DAILY [facility] Last Admin: 12/29/17 09:20 Dose: 1 tab Multivitamins/Minerals (Ocuvite With Lutein) 2 tab PO BID [facility] Last Admin: 12/29/17 21:00 Dose: 2 tab Pravastatin Sodium (Pravachol) 40 mg PO HS [facility] Last Admin: 12/29/17 21:01 Dose: 40 mg Primidone (Mysoline) 125 mg PO DAILY@1200 [facility] Last Admin: 12/29/17 11:32 Dose: 125 mg Primidone (Mysoline) 250 mg PO Q12HR [facility] Last Admin: 12/29/17 21:01 Dose: 250 mg Senna/Docusate Sodium (Cherry-Colace) 1 tab PO BID [facility] Last Admin: 12/29/17 21:02 Dose: Not Given Sennosides (Senokot) 17.2 mg PO Q12H PRN PRN Reason: Moderate Constipation Sodium Chloride (Ns Flush) 2 ml IV.FLUSH BID [facility] Last Admin: 12/29/17 21:02 Dose: 2 ml Sodium Chloride (Ns Flush) 2 ml IV.FLUSH PRN PRN PRN Reason: FLUSH AFTER USING IV ACCESS Vitamin D (Vitamin D3) 2,000 unit PO DAILY [facility] Last Admin: 12/29/17 09:20 Dose: 2,000 unit Allergies Allergy/AdvReac Type Severity Reaction Status Date / Time No Known Allergies Allergy Unverified 12/28/17 10:00 Home Medications Medication Instructions Recorded Confirmed Type cholecalciferol (vitamin D3) 2,000 unit PO DAILY 12/28/17 12/28/17 History [Vitamin D3] levothyroxine 75 mcg PO DAILY 12/28/17 12/28/17 History metoprolol tartrate 25 mg PO BID 12/28/17 12/28/17 History multivitamin 1 cap PO QAM 12/28/17 12/28/17 History primidone 125 mg PO QNOON 12/28/17 12/28/17 History primidone 250 mg PO Q12H 12/28/17 12/28/17 History vitamins A,C,[id number] 2 tab PO BID 12/28/17 12/28/17 History [PreserVision AREDS] Exam Vital signs: Vital Signs 12/29/17 08:00 12/29/17 09:33 12/29/17 12:00 Temperature 99.0 F 97.3 F L Pulse Rate 88 81 86 Respiratory Rate 20 20 Blood Pressure 136/84 145/89 H Pulse Oximetry 94 L 99 12/29/17 15:47 12/29/17 16:00 12/29/17 20:00 Temperature 99.5 F Pulse Rate 91 H 103 H Respiratory Rate 20 Blood Pressure 145/88 H Pulse Oximetry 94 L 92 L 12/29/17 20:45 12/30/17 00:15 12/30/17 03:29 Temperature 98 F 97.9 F Pulse Rate 100 H 98 H 103 H Respiratory Rate 18 17 Blood Pressure 160/90 H 145/85 H Pulse Oximetry 92 L 94 L Intake & Output 12/29/17 12/29/17 12/30/17 06:59 18:59 06:59 Intake Total 1000 / 1000 600 / 600 500 / 500 Balance 1000 / 1000 600 / 600 500 / 500 Weight 79.34 kg Intake: IV 1000 / 1000 NS Inj 1,000 ML @ 70 mls/hr IV. 1000 / 1000 CONT .[id number] [facility] Rx#:[id number] Oral 600 / 600 500 / 500 Other: # Voids 5 1 Date of Last Bowel Movement 12/28/17 12/28/17 12/29/17 # Bowel Movements 1 0 Weight On Admission 79.379 kg - Constitutional no acute distress - Routine HEENT Exam Eye: Present: EOMI ENT: Present: mucous membranes moist - Routine Neck Exam Absent: JVD - Routine Respiratory Exam Present: CTA bilaterally - Routine Cardiovascular Exam Present: RRR, S1, S2 - Routine Abdominal Exam Present: soft, normoactive bowel sounds - Routine Skin Exam Present: intact - Routine Neurological Exam Present: alert, oriented X3, CN II-XII intact (grossly, patient ambulates with a walker) Results 12/28/17 10:45 12/28/17 10:45 Lipids 12/29/17 Range/Units 08:30 Triglycerides 90 (42-150) mg/dL Cholesterol 93 L (120-200) mg/dL HDL Cholesterol 18.0 L (40.0-60.0) mg/dL Cholesterol/HDL Ratio 5.16 Ratio Intake and Output 12/29/17 12/29/17 12/30/17 14:59 22:59 06:59 Intake Total 1100 / 1100 Balance 1100 / 1100 Intake: Oral 1100 / 1100 Other: # Voids 1 Date of Last Bowel Movement 12/28/17 12/29/17 # Bowel Movements 0 EKG interpretations - EKG EKG shows: atrial fibrillation Assessment and Plan - Plan Assessment: Atrial fibrillation Acute onset of Right Lower Extremity Weakness Hx of Seizures Plan: I agree with Dr. Carrera that his [id number] score prior to this event was 1 (Metoprolol for rate control rather than HTN) and ASA is sufficient. With that being said, if Neurology feels that this was a stroke than oral anticoagulation should be added. I discussed this further with the patient and he is amendable to Eliquis. I would at this point recommend Eliquis 5mg po BID. As always, thank you for allowing me to participate.
[2017-12-30] MEDS: Metoprolol Tartrate 25 MG Tablet PO SCH (08:37)
[2017-12-30] MEDS: Senna/Docusate Sodium 8.6/50 MG Tablet PO SCH (08:37)
[2017-12-30] MEDS: Vitamins A,C,E/Lutein/Minerals Tablet PO SCH (08:37)
[2017-12-30] MEDS: Primidone 250 MG Tablet PO SCH ×2 (08:37→12:15)
[2017-12-30] MEDS: Insulin NovoLOG Aspart Correctional Sugar Inj SQ SCH ×2 (08:38→11:35)
--- NOTE | 2017-12-30 11:51 | P.PNCA ---
Subjective Interval history: No acute events. Physical Exam Vital signs: Vital Signs 12/29/17 12:00 12/29/17 15:47 12/29/17 16:00 Temperature 97.3 F L 99.5 F Pulse Rate 86 91 H Respiratory Rate 20 20 Blood Pressure 145/89 H 145/88 H Pulse Oximetry 99 94 L 92 L 12/29/17 20:00 12/29/17 20:45 12/30/17 00:15 Temperature 98 F 97.9 F Pulse Rate 103 H 100 H 98 H Respiratory Rate 18 17 Blood Pressure 160/90 H 145/85 H Pulse Oximetry 92 L 94 L 12/30/17 03:29 12/30/17 04:50 12/30/17 08:00 Temperature 98 F 97.7 F Pulse Rate 103 H 78 87 Respiratory Rate 19 16 Blood Pressure 140/88 151/90 H Pulse Oximetry 95 94 L 12/30/17 09:07 Temperature Pulse Rate Respiratory Rate Blood Pressure Pulse Oximetry 95 Intake & Output 12/29/17 12/30/17 12/30/17 18:59 06:59 18:59 Intake Total 600 / 600 1400 / 1400 Balance 600 / 600 1400 / 1400 Weight 79.5 kg Intake: Oral 600 / 600 1400 / 1400 Other: # Voids 5 4 Date of Last Bowel Movement 12/28/17 12/29/17 12/29/17 # Bowel Movements 1 0 - Constitutional no acute distress - Routine HEENT Exam Head: Present: normocephalic Eye: Present: EOMI, PERRL - Routine Neck Exam Absent: JVD - Routine Respiratory Exam Present: CTA bilaterally - Routine Cardiovascular Exam Present: S1, S2, irregular rhythm - Routine Abdominal Exam Present: soft, normoactive bowel sounds. Absent: tenderness - Routine Neurological Exam Present: alert, oriented X3 - Routine Psychiatric Exam Present: normal affect Assessment and Plan - Plan Assessment: Atrial fibrillation Acute onset of Right Lower Extremity Weakness Hx of Seizures Plan: After further discussion, the patient prefers to be on Eliquis. Unclear whether his episode was a TIA or not. Regardless at the age of 75, he will require AC. Given this would start the patient on Eliquis and d/c ASA. The patient's is in agreement. Thank you for allowing me to participate. Please call with any questions.
--- NOTE | 2017-12-30 12:05 | ECG ---
Date Performed: 12/28/2017 Time Performed: 10:21:20 PTAGE: 72 years EKG: ATRIAL FIBRILLATION WITH RAPID VENTRICULAR RESPONSE WITH ABERRANT CONDUCTION OR VENTRICULAR PREMATURE COMPLEXES ABNORMAL RHYTHM ECG NO PREVIOUS TRACING DOCTOR: Flahs Bird Interpretating Date/Time 12/30/2017 12:03:29
[2017-12-30] MEDS: Enoxaparin Inj 30 MG/0.3 ML Syringe SQ SCH (13:38)
--- NOTE | 2017-12-30 16:19 | P.DS ---
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 There was a concern for stroke and the patient was admitted for workup to rule out an acute stroke. DS: Medications - Discharge Medications Prescriptions: apixaban [Eliquis] 5 mg PO BID #30 tab pravastatin 40 mg PO HS #30 tab DS: Summary Hospital Course: 1. Right lower extremity weakness likely TIA. 2. Atrial fibrillation This is a 72-year-old male with significant past medical history for traumatic brain injury or prophylactic antiseizure medications who has been seizure-free for more than 2 years to presents emergency department with a right lower extremity weakness. Apparently he was in usual state of health up until 5 days ago when he noticed right lower extremity weakness difficulty ambulating. It appears that the patient previously had atrial fibrillation however it is unclear why he was taken off of anticoagulation and aspirin. On admission it appears that he was in atrial fibrillation as per what the daughter describes since she is a nurse. A CT scan of the head was obtained which showed old findings from traumatic brain injury that the patient suffered when he was in his late teens. An MRI of the head was also done which did not show any findings consistent with acute stroke. Carotid Doppler and echocardiogram did not show any other significant findings. The patient is tolerating a p.o. diet without any difficulty swallowing. EKG showed atrial fibrillation. He was subsequently admitted and his symptoms had resolved. Neurology was consulted to evaluate the patient as there is a concern for possible seizure. An EEG was done which showed a possible seizure-like activity however those findings could be due to the previous traumatic brain injury that the patient suffered. As per the patient and his family he has been seizure-free for many years. Recommendations from neurology were to continue the patient on primidone which he is currently on. Cardiology was also consulted to divide the patient for atrial fibrillation and anticoagulation. He does have an elevated chads score he was restarted on Eliquis as per cardiology recommendations. The risks and benefits of anticoagulants were discussed with the patient and the patient's family. The patient understands the risks and agrees to begin anticoagulation. He was also evaluated by by PT who recommends that the patient use a front wheel walker. On my examination the patient has equal strength in bilateral lower extremities 5 out of 5 strength. And he can move both upper extremities without any difficulty. He will be discharged home today. - Time Spent with Patient Total time spent providing and/or coordinating discharge services: Greater than 30 minutes - Quality: VTE Deep Vein Thrombosis/Pulmonary Embolism Present on Admission: No Exam Vital signs: Vital Signs 12/29/17 20:00 12/29/17 20:45 12/30/17 00:15 Temperature 98 F 97.9 F Pulse Rate 103 H 100 H 98 H Respiratory Rate 18 17 Blood Pressure 160/90 H 145/85 H Pulse Oximetry 92 L 94 L 12/30/17 03:29 12/30/17 04:50 12/30/17 08:00 Temperature 98 F 97.7 F Pulse Rate 103 H 78 87 Respiratory Rate 19 16 Blood Pressure 140/88 151/90 H Pulse Oximetry 95 94 L 12/30/17 09:07 12/30/17 11:53 12/30/17 12:00 Temperature 97.4 F L Pulse Rate 83 85 Respiratory Rate 16 Blood Pressure 131/76 Pulse Oximetry 95 94 L Intake & Output 12/29/17 12/30/17 12/30/17 18:59 06:59 18:59 Intake Total 600 / 600 1400 / 1400 Balance 600 / 600 1400 / 1400 Weight 79.5 kg Intake: Oral 600 / 600 1400 / 1400 Other: # Voids 5 4 Date of Last Bowel Movement 12/28/17 12/29/17 12/29/17 # Bowel Movements 1 0 Narrative: General patient in no acute distress HEENT extraocular movements are intact, clear oropharyngeal mucosa, no JVD Cardiovascular S1-S2 audible Respiratory clear to auscultation bilaterally Abdomen soft, nontender, nondistended, normal bowel sounds Extremities no edema 2+ distal pulses in bilateral upper and lower extremities Neuro patient can move all 4 extremities sensation is intact bilaterally bilateral lower extremity strength appears to be equal to me. Expressive aphasia is noted. Results Procedures completed during hospitalization: none Labs on day of discharge: Labs from last 24 hours 12/30/17 12/30/17 12/29/17 07:55 07:37 20:02 POC Glucose 104 129 H TSH 6.190 H 12/29/17 18:26 POC Glucose 90 TSH - Impressions ITS Impressions Carotid Doppler Study 12/28/17 00:00 CONCLUSION: Right Internal Carotid Artery: No evidence of hemodynamically significant lesion with less than 50% stenosis. Left Internal Carotid Artery: No evidence of hemodynamically significant lesion with less than 50% stenosis. Head MRI 12/28/17 00:00 CONCLUSION: 1. 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 No evidence of acute abnormality. Liver Ultrasound 12/28/17 00:00 CONCLUSION: 1. Abnormal appearance of the gallbladder with wall thickening, sludge and stones. The patient denies pain while imaging over this area, however, findings remain concerning for acute cholecystitis. 2. Trace pleural effusion. Small amount of free fluid identified adjacent to the right kidney. Chest X-Ray 12/28/17 10:42 CONCLUSION: Cardiomegaly. Atelectasis versus scar right base Head CT 12/28/17 10:42 CONCLUSION: 1. 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 . Discharge Plan - Discharge Disposition Patient Disposition: 01 Discharge Home - Discharge Condition Condition: Stable - Discharge Order Discharge Orders: Discharge Order (Routine); Ordered 12/30/17 Ordered By: Jasbir Ahumada - Physicians Team Primary Care Provider: UNKNOWN, Attending Provider: Juan M Mauro Other Providers: Marcela Alejandro MD ; Rosalva Liu MD ; Bria Foster MD
== END 2017-12-30 16:52 | disposition home or self-care (01) ==
LOC: NEPC 09:54 → NEDA 17:01 → N05 19:35
PROVIDERS: ADMIT Family Medicine; ATTEND Family Medicine